=== PATIENT | female | born 2000 | race Caucasian/White ===

== ENCOUNTER 2021-04-30 19:13 | Emergency (ER) | payer BC ==
[2021-04-30] MEDS ORDERED: Codeine/Promethazine 10-6.25 MG/5 ML Syrup 5 ML UD Cup PO ONE (19:41)
--- NOTE | 2021-04-30 19:43 | EDM.PDOC ---
ED HPI GENERAL MEDICAL PROBLEM - General Chief Complaint: Respiratory Problem Stated Complaint: COVID+/COUGH,FEVER Time Seen by Provider: 04/30/21 19:26 Source of Information: Reports: Patient, RN Notes Reviewed History Limitations: Reports: No Limitations - History of Present Illness INITIAL COMMENTS - FREE TEXT/NARRATIVE: Patient is a 20-year-old female who presents to the ER for multiple Covid symptoms. Patient states that her entire family has Covid-like symptoms, and that her father was admitted to this hospital sometime Friday or Friday for COVID-19. Patient states she has been sick since about with a cough, fever, shortness of breath no nausea/vomiting/diarrhea. Patient states that she is not vaccinated for COVID-19. Other than obesity, she denies any other risk factors for worsening Covid disease. Primary care provider is Chris Ramirez. - Related Data Allergies Allergy/AdvReac Type Severity Reaction Status Date / Time No Known Allergies Allergy Verified 04/30/21 19:26 Home Meds: Home Meds Codeine/Promethazine [Phenergan with Codeine] 5 ml PO Q4HR PRN #120 ml 04/30/21 [Rx] Past Medical History - Past Health History Medical/Surgical History: Denies Medical/Surgical History Endocrine/Metabolic History: Reports: Obesity/BMI 30+ - Past Surgical History HEENT Surgical History: Reports: Oral Surgery Other HEENT Surgeries/Procedures: [place] tooth extraction Social & Family History - Tobacco Use Tobacco Use Status *Q: Never Tobacco User - Recreational Drug Use Recreational Drug Use: No ED ROS GENERAL - Review of Systems Review Of Systems: Comprehensive ROS is negative, except as noted in HPI. ED EXAM, GENERAL - Physical Exam Exam: See Below Exam Limited By: No Limitations General Appearance: Alert, WD/WN, No Apparent Distress Respiratory/Chest: No Respiratory Distress, Lungs Clear, Normal Breath Sounds, No Accessory Muscle Use, Chest Non-Tender Cardiovascular: Normal Peripheral Pulses, Regular Rate, Rhythm, No Edema Extremities: Normal Inspection, Normal Capillary Refill Neurological: Alert, Oriented, Normal Cognition, No Motor/Sensory Deficits Psychiatric: Normal Affect, Normal Mood Skin Exam: Warm, Dry, Intact, Normal Color, No Rash Course - Vital Signs Last Recorded V/S: Last Vital Signs Temp 98.1 F 04/30/21 19:26 Pulse 110 H 04/30/21 19:26 Resp 15 04/30/21 19:26 BP 157/96 H 04/30/21 19:26 Pulse Ox 93 L 04/30/21 19:26 - Orders/Labs/Meds Orders: Active Orders 24 hr Category Date Time Status Chest 1V Frontal [CR] Stat Exams 04/30/21 19:40 Ordered Labs: Laboratory Tests 04/30/21 04/30/21 04/30/21 Range/Units 19:50 19:50 20:10 WBC 5.26 (3.98-10.04) K/mm3 RBC 5.15 (3.98-5.22) M/mm3 Hgb 13.6 (11.2-15.7) gm/dl Hct 42.2 (34.1-44.9) % MCV 81.9 (79.4-94.8) fl MCH 26.4 (25.6-32.2) pg MCHC 32.2 (32.2-35.5) g/dl RDW Std Deviation 44.7 (36.4-46.3) fL Plt Count 192 (182-369) K/mm3 MPV 10.7 (9.4-12.3) fl Neut % (Auto) 63.3 (34.0-71.1) % Lymph % (Auto) 27.6 (19.3-51.7) % [place] % (Auto) 8.7 (4.7-12.5) % Eos % (Auto) 0.2 L (0.7-5.8) Baso % (Auto) 0.0 L (0.1-1.2) % Neut # (Auto) 3.33 (1.56-6.13) K/mm3 Lymph # (Auto) 1.45 (1.18-3.74) K/mm3 [place] # (Auto) 0.46 H (0.24-0.36) K/mm3 Eos # (Auto) 0.01 L (0.04-0.36) K/mm3 Baso # (Auto) 0.00 L (0.01-0.08) K/mm3 Sodium 141 (136-145) mEq/L Potassium 3.3 L (3.5-5.1) mEq/L Chloride 103 (98-107) mEq/L Carbon Dioxide 25 (21-32) mEq/L Anion Gap 16.3 H (5-15) BUN 7 (7-18) mg/dL Creatinine 0.9 (0.55-1.02) mg/dL Est Cr Clr Drug Dosing 105.07 mL/min Estimated GFR (MDRD) > 60 (>60) mL/min BUN/Creatinine Ratio 7.8 L (14-18) Glucose 93 (70-99) mg/dL Calcium 8.5 (8.5-10.1) mg/dL Total Bilirubin 0.3 (0.2-1.0) mg/dL AST 22 (15-37) U/L ALT 28 (14-59) U/L Alkaline Phosphatase 49 (46-116) U/L C-Reactive Protein 2.2 H* (<1.0) mg/dL Total Protein 7.8 (6.4-8.2) g/dl Albumin 3.8 (3.4-5.0) g/dl Globulin 4.0 gm/dL Albumin/Globulin Ratio 1.0 (1-2) SARS-CoV-2 RNA (DUNG) Positive H (NEGATIVE) Meds: Medications Discontinued Medications Generic Name Dose Route Start Last Admin Trade Name Freq PRN Reason Stop Dose Admin Promethazine HCl/Codeine 10 ml 04/30/21 19:41 04/30/21 20:10 Codeine/Promethazine 10-6.25 Mg/5 Ml Syrup 5 Ml Ud Cup PO 04/30/21 19:42 10 ml ONETIME ONE Administration - Re-Assessments/Exams Free Text/Narrative Re-Assessment/Exam: 04/30/21 19:43 Patient presents to the ER for evaluation of her [id number] illness. We will go ahead and do a swab for COVID-19/influenza, get a baseline chest x-ray, and some basic labs for initial evaluation. 04/30/21 21:06 Laboratory evaluation is essentially unremarkable, CRP is elevated at 2.2. Covid screen did come back positive. Chest x-ray showed no obvious sign of any acute consolidation or viral type pneumonia suggestive of worsening Covid disease. The patient's O2 saturations have been as good as they have been we will discharge the patient home with general recommendations and have her return to care if her O2 sat seem to worsen. Patient would be a candidate for outpa tient monoclonal antibody therapy should her condition worsen over the next few days. Departure - Departure Time of Disposition: 21:07 Disposition: Home, Self-Care 01 Condition: Good Clinical Impression: COVID-19 - Discharge Information *PRESCRIPTION DRUG MONITORING PROGRAM REVIEWED*: No *COPY OF PRESCRIPTION DRUG MONITORING REPORT IN PATIENT CAYLA: No Prescriptions: Codeine/Promethazine [Phenergan with Codeine] 5 ml PO Q4HR PRN #120 ml PRN Reason: Cough Instructions: 10 Things You Can Do to Manage Your COVID-19 Symptoms at Home - [facility] (02/02/2021) Referrals: Chris Acosta MD [Primary Care Provider] - Forms: ED Department Discharge Additional Instructions: You were seen in the ER today for ongoing and/or worsening respiratory symptoms. Your chest x-ray showed no signs of pneumonia at this time. Your oxygen levels were great at 93-95% on room air. You are a candidate for outpatient monoclonal antibody therapy. If your COVID- 19 disease should worsen, you should get a hold of our Covid clinic at [phone] to get this set up. Please try to increase your oral fluid intake, and eat multiple small meals throughout the day, to keep yourself healthy. You need to keep yourself nourished in order to fight off this disease. You can try a liquid diet like gatorade/powerade as well to get your electrolytes. You may take 500 mg Tylenol every hours 6 hours for pain/fever relief. Do not exceed 4000 mg Tylenol in a 24-hour time span. However, running a fever is your body's natural response to illness, and it allows the body to develop antibodies to disease, we are recommending trying to limit the use of Tylenol as much as possible to allow your body's natural immune response. You were given a prescription for a strong cough medication, this was electronically prescribed to the [facility] pharmacy located on [place]. 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 Recommend you obtain a pulse oximeter and monitor your oxygen levels at home, you should place the monitor on your finger, and sit in a calm, quiet position for a few minutes and then record the number that is on the screen. If this consistently below 90% on room air without movement, this would be cause for concern to come back to the hospital for further management of your COVID-19 disease. Please follow all guidance set forth from [facility], regarding isolation purposes for your disease process. General isolation times are 10 days from when you started being symptomatic. Sepsis Event Note (ED) - Evaluation Sepsis Screening Result: No Definite Risk - Focused Exam Vital Signs: Vital Signs Temp Pulse Resp BP Pulse Ox 04/30/21 19:26 98.1 F 110 H 15 157/96 H 93 L - My Orders Last 24 Hours: My Active Orders 04/30/21 19:40 Chest 1V Frontal [CR] Stat - Assessment/Plan Last 24 Hours: My Active Orders 04/30/21 19:40 Chest 1V Frontal [CR] Stat
--- NOTE | 2021-05-01 07:17 | CR ---
Chest: Frontal view of the chest was obtained. Comparison: No prior chest imaging is available. Heart size and mediastinum are normal. Patchy increased density within the left mid and lower lung as well as minimal density within the right lower lung is seen. Bony structures show nothing acute. Impression: 1. Slight increased density within both lungs. Findings are suspicious for possible COVID pneumonia. Please correlate. Diagnostic code #3
== END 2021-04-30 21:40 | disposition home or self-care (01) ==
LOC: JD.ED 19:13
DX: U07.1 COVID-19 (principal)
CPT/HCPCS: 36415; 71045; 80053; 85025; 86140; 87635; 87804; 99283; A9270; U0002